=== PATIENT | female | born 1955 | race Hispanic/Latino ===

== ENCOUNTER → 2022-08-27 | Outpatient (CLI) | payer OTHER, MEDICARE ==
[~2022-08-27] MED LIST: REGADENOSON 0.4 MG/5 ML PF SYG IVP SCH
== END | disposition home or self-care (01) ==
LOC: SHCH 09:02
PROVIDERS: ATTEND Internal Medicine Cardiovascular Disease
DX: I20.9 Angina pectoris, unspecified (principal)
CPT/HCPCS: 78452; 96374; 93017; J2785; A9500 ×2

== ENCOUNTER → 2022-12-01 | Outpatient (CLI) | payer OTHER, MEDICARE | END | disposition home or self-care (01) | LOC: SHCH 15:10 | PROVIDERS: ATTEND Internal Medicine Cardiovascular Disease | DX: I87.2 Venous insufficiency (chronic) (peripheral) (principal) | CPT/HCPCS: 93970 ==

== ENCOUNTER → 2023-12-13 | Outpatient (CLI) | payer OTHER, MEDICARE | END | disposition home or self-care (01) | LOC: SHCH 09:00 | PROVIDERS: ATTEND Internal Medicine Cardiovascular Disease | DX: I87.1 Compression of vein (principal); I87.2 Venous insufficiency (chronic) (peripheral) | CPT/HCPCS: 93925; 93970 ==

== ENCOUNTER 2024-04-20 05:33 | Day surgery (SDC) | payer MEDICARE ==
[2024-04-17 11:12] VITALS: BP 225/78; PULSE 81; RESP 18
[2024-04-17 11:15] LABS: BASOPHILS # (AUTO) 0.05 K/uL (0.00-0.20); BASOPHILS % (AUTO) 0.4 % (0.0-5.0); EOSINOPHILS # (AUTO) 0.06 K/uL (0.00-0.70); EOSINOPHILS % (AUTO) 0.5 % (0.0-8.0); HEMATOCRIT 34.9 % (36-48); IMMATURE GRANULOCYTE ABSOLUTE 0.14 K/uL (0-1); LYMPHOCYTES % (AUTO) 26.3 % (21.0-51.0); MEAN CORPUSCULAR HEMOGLOBIN 30.4 pg (27.0-33.0); MEAN CORPUSCULAR HGB CONC 32.7 g/dL (32.0-36.0); MEAN CORPUSCULAR VOLUME 93.1 fL (79-99); MONOCYTES # (AUTO) 0.5 K/uL (0.1-1.0); MONOCYTES % (AUTO) 4.1 % (3.0-13.0); NEUTROPHILS # (AUTO) 7.8 K/uL (1.8-7.7); NEUTROPHILS % (AUTO) 67.5 % (40.0-77.0); PLATELET COUNT (AUTO) 205 K/uL (130-400); RED BLOOD CELL COUNT(AUTO) 3.75 MIL/uL (4.00-5.50); RED CELL DISTRIBUTION WIDTH 14.6 % (11.0-15.5); WHITE BLOOD COUNT (AUTO) 11.6 K/uL (4.8-10.8)
[2024-04-17 11:20] LABS: CREATININE 0.8 mg/dL (0.5-1.0); POTASSIUM 3.5 mmol/L (3.5-5.1)
[2024-04-17 11:37] LABS: INR 1.01 (0.85-1.15); PROTHROMBIN TIME 10.9 SEC (9.6-11.6)
[2024-04-17 11:39] LABS: PARTIAL THROMBOPLASTIN TIME 23.9 SEC (26.3-35.5)
[~2024-04-20] VITALS: Ht 147.3 cm; Wt 59.8 kg
[2024-04-20] VITALS (8 sets, daily range): BP systolic 158–215; BP diastolic 63–84; PULSE 64–84; RESP 14–17
[~2024-04-20 05:33] MED LIST changes: +AMLO-258 PO; +ATOR40TA71 PO; +AZIT500T4 PO; +CLOP75TA32 PO; +DENO60DI SQ; +GLIM2TAB30 PO; +LOSA100T59 PO; +METF-444 PO; -REGADENOSON 0.4 MG/5 ML PF SYG IVP SCH; +VIT B 12 PO
[2024-04-20] MEDS ORDERED: NITROGLYCERIN 50MG VIAL ONE (07:13)
[2024-04-20] MEDS ORDERED: LIDOCAINE HCL 400MG/20ML VIAL ONE (07:13)
[2024-04-20] MEDS ORDERED: IODIXANOL 320 MG/ML 100 ML VIAL ONE (07:14)
[2024-04-20] MEDS ORDERED: FENTANYL CITRATE PF 50 MCG/1 ML 2ML VIAL ONE (07:39)
[2024-04-20] MEDS ORDERED: MIDAZOLAM HCL 1 MG/ML 2ML VIAL ONE ×2 (07:39→08:05)
[2024-04-20] MEDS ORDERED: HEPARIN 10,000 UNIT/10ML (1,000 UNIT/ML) VIAL ONE (07:40)
[2024-04-20] MEDS ORDERED: CLOPIDOGREL 300MG TAB ONE (09:19)
[2024-04-20] MEDS ORDERED: METOPROLOL TARTRATE 1 MG/ML 5ML VIAL IV PRN (09:30)
[2024-04-20] MEDS ORDERED: GLUCAGON 1MG KIT 1 MG ML IM PRN (09:30)
[2024-04-20] MEDS ORDERED: DEXTROSE 50%-WATER 50 ML DISP.SYRIN IV PRN (09:30)
[2024-04-20] MEDS ORDERED: NITROGLYCERIN 0.4 MG SL TAB SL PRN (09:30)
[2024-04-20] MEDS ORDERED: INSULIN HUMULIN R 100 UNIT/ML 3ML SQ SCH (11:30)
== END 2024-04-20 11:39 | disposition home or self-care (01) ==
LOC: DAH 05:33
PROVIDERS: ATTEND Internal Medicine Cardiovascular Disease
DX: E11.51 Type 2 diabetes mellitus with diabetic peripheral angiopathy without gangrene (principal); I70.213 Atherosclerosis of native arteries of extremities with intermittent claudication, bilateral legs; Z79.01 Long term (current) use of anticoagulants; I10 Essential (primary) hypertension; E78.5 Hyperlipidemia, unspecified; M19.90 Unspecified osteoarthritis, unspecified site; I87.1 Compression of vein; I87.2 Venous insufficiency (chronic) (peripheral); Z95.820 Peripheral vascular angioplasty status with implants and grafts; Z88.0 Allergy status to penicillin; Z88.6 Allergy status to analgesic agent; Z79.84 Long term (current) use of oral hypoglycemic drugs; Z79.899 Other long term (current) drug therapy
CPT/HCPCS: 80048; 85025; 85610; 85730; 36415; 93005; 75625; 75716; 75774; 85347; 82948 ×2; C9765; C1887; C1725 ×2; C1769 ×2; C1894 ×2; C1760; C1893; C1876 ×2; C2623; C9772; J3010; J3490 ×2; J1644 ×2; J2250 ×2; Q9967; A4215; A4222; A4221; A4663; A4216; A4606; A4223 ×3; 99156; 99157

== ENCOUNTER → 2024-05-31 | Outpatient (CLI) | payer MEDICARE ==
[~2024-05-31] VITALS: Ht 147.3 cm; Wt 59.7 kg
[2024-05-31 13:53] LABS: BASOPHILS # (AUTO) 0.02 K/uL (0.00-0.20); BASOPHILS % (AUTO) 0.3 % (0.0-5.0); EOSINOPHILS # (AUTO) 0.11 K/uL (0.00-0.70); EOSINOPHILS % (AUTO) 1.7 % (0.0-8.0); HEMATOCRIT 34.6 % (36-48); IMMATURE GRANULOCYTE ABSOLUTE 0.03 K/uL (0-1); LYMPHOCYTES # (AUTO) 0.9 K/uL (1.0-4.8); LYMPHOCYTES % (AUTO) 14.4 % (21.0-51.0); MEAN CORPUSCULAR HEMOGLOBIN 30.6 pg (27.0-33.0); MEAN CORPUSCULAR HGB CONC 32.4 g/dL (32.0-36.0); MEAN CORPUSCULAR VOLUME 94.5 fL (79-99); MONOCYTES # (AUTO) 0.3 K/uL (0.1-1.0); MONOCYTES % (AUTO) 5.1 % (3.0-13.0); NEUTROPHILS # (AUTO) 4.9 K/uL (1.8-7.7); PLATELET COUNT (AUTO) 135 K/uL (130-400); RED BLOOD CELL COUNT(AUTO) 3.66 MIL/uL (4.00-5.50); RED CELL DISTRIBUTION WIDTH 15.1 % (11.0-15.5); WHITE BLOOD COUNT (AUTO) 6.3 K/uL (4.8-10.8)
[2024-05-31 14:00] LABS: CREATININE 0.8 mg/dL (0.5-1.0); POTASSIUM 3.6 mmol/L (3.5-5.1)
[2024-05-31 14:03] LABS: INR 1.01 (0.85-1.15); PROTHROMBIN TIME 10.9 SEC (9.6-11.6)
[2024-05-31 14:04] LABS: PARTIAL THROMBOPLASTIN TIME 27.3 SEC (26.3-35.5)
[2024-05-31 14:05] VITALS: BP 227/74; PULSE 94; RESP 18; TEMP 97.9
[2024-05-31 14:05] LABS: ADD UA MICROSCOPIC YES
[2024-05-31 14:06] LABS: APPEARANCE,URINE CLEAR (CLEAR); BACTERIA,URINE RARE /HPF (None Seen); BILIRUBIN,URINE NEGATIVE (NEGATIVE); COLOR,URINE LIGHT-YELLOW (YELLOW); GLUCOSE, URINE (UA) >=1000 mg/dL (NEGATIVE); KETONES,URINE NEGATIVE (NEGATIVE); LEUKOCYTE ESTERASE ,URINE NEGATIVE Leu/uL (NEGATIVE); MUCUS,URINE RARE LPF (None Seen); NITRATE,URINE NEGATIVE (NEGATIVE); PROTEIN,URINE 30 mg/dL (NEGATIVE); RBC,URINE 0-1 /HPF (0-1); SQUAMOUS EPITHELIAL CELL,UR FEW /HPF (0-2); UROBILINOGEN,URINE 0.2 mg/dL (0.2-1.0); WBC,URINE 0-1 /HPF (0-1)
[2024-05-31 14:33] LABS: B-TYPE NATRIURETIC PEPTIDE 16 pg/mL (0-100)
== END | disposition home or self-care (01) ==
LOC: DAH 10:00 → EDSTATUS 13:00
PROVIDERS: ATTEND Internal Medicine Cardiovascular Disease
DX: Z01.818 Encounter for other preprocedural examination (principal); I73.9 Peripheral vascular disease, unspecified
CPT/HCPCS: 36415; 71045; 80048; 81001; 83880; 85025; 85610; 85730; 87426; 93005

== ENCOUNTER → 2024-06-01 | Outpatient (CLI) | payer MEDICARE | END | disposition home or self-care (01) | LOC: DAH 10:00 | PROVIDERS: ATTEND Internal Medicine Cardiovascular Disease | DX: Z20.822 Contact with and (suspected) exposure to COVID-19 (principal) | CPT/HCPCS: 87426 ==

== ENCOUNTER 2024-07-10 08:24 | Day surgery (SDC) | payer MEDICARE ==
[2024-07-06 13:41] LABS: BASOPHILS # (AUTO) 0.02 K/uL (0.00-0.20); BASOPHILS % (AUTO) 0.4 % (0.0-5.0); EOSINOPHILS # (AUTO) 0.11 K/uL (0.00-0.70); EOSINOPHILS % (AUTO) 2.5 % (0.0-8.0); HEMATOCRIT 31.1 % (36-48); IMMATURE GRANULOCYTE ABSOLUTE 0.02 K/uL (0-1); LYMPHOCYTES # (AUTO) 1.2 K/uL (1.0-4.8); LYMPHOCYTES % (AUTO) 27.6 % (21.0-51.0); MEAN CORPUSCULAR HGB CONC 33.4 g/dL (32.0-36.0); MEAN CORPUSCULAR VOLUME 92.6 fL (79-99); MONOCYTES # (AUTO) 0.2 K/uL (0.1-1.0); MONOCYTES % (AUTO) 4.5 % (3.0-13.0); NEUTROPHILS # (AUTO) 2.9 K/uL (1.8-7.7); NEUTROPHILS % (AUTO) 64.6 % (40.0-77.0); PLATELET COUNT (AUTO) 150 K/uL (130-400); RED BLOOD CELL COUNT(AUTO) 3.36 MIL/uL (4.00-5.50); RED CELL DISTRIBUTION WIDTH 14.7 % (11.0-15.5); WHITE BLOOD COUNT (AUTO) 4.5 K/uL (4.8-10.8)
[2024-07-06 13:46] VITALS: PULSE 86; RESP 18; TEMP 97.7
[2024-07-06 13:54] LABS: CREATININE 0.8 mg/dL (0.5-1.0); INR 1.01 (0.85-1.15); POTASSIUM 3.7 mmol/L (3.5-5.1); PROTHROMBIN TIME 10.9 SEC (9.6-11.6)
[2024-07-06 13:56] LABS: PARTIAL THROMBOPLASTIN TIME 25.9 SEC (26.3-35.5)
[2024-07-06 13:58] LABS: ADD UA MICROSCOPIC YES; APPEARANCE,URINE CLEAR (CLEAR); BACTERIA,URINE RARE /HPF (None Seen); BILIRUBIN,URINE NEGATIVE (NEGATIVE); COLOR,URINE LIGHT-YELLOW (YELLOW); GLUCOSE, URINE (UA) >=1000 mg/dL (NEGATIVE); KETONES,URINE NEGATIVE (NEGATIVE); LEUKOCYTE ESTERASE ,URINE NEGATIVE Leu/uL (NEGATIVE); MUCUS,URINE RARE LPF (None Seen); NITRATE,URINE NEGATIVE (NEGATIVE); OCCULT BLOOD,URINE NEGATIVE (NEGATIVE); PROTEIN,URINE 20 mg/dL (NEGATIVE); SQUAMOUS EPITHELIAL CELL,UR FEW /HPF (0-2); UROBILINOGEN,URINE 0.2 mg/dL (0.2-1.0)
[2024-07-06 14:11] LABS: B-TYPE NATRIURETIC PEPTIDE 14 pg/mL (0-100)
[~2024-07-10] VITALS: Ht 147.3 cm; Wt 59.8 kg
[2024-07-10] VITALS (15 sets, daily range): BP systolic 131–195; BP diastolic 51–66; PULSE 73–88; RESP 14–16; TEMP 98.1–98.2
[~2024-07-10 08:24] MED LIST changes: -AZIT500T4 PO
[2024-07-10] MEDS ORDERED: 0.9%NACL 1000ML 1,000 ML IV ONE (09:52)
[2024-07-10] MEDS: 0.9%NACL 1000ML 1,000 ML IV ONE (09:53)
[2024-07-10] MEDS ORDERED: LIDOCAINE HCL 400MG/20ML VIAL ONE (10:20)
[2024-07-10] MEDS ORDERED: HEParin-NS 1,000 UNIT/500 ML 1,000 ML IV ONE (10:21)
[2024-07-10] MEDS ORDERED: NITROGLYCERIN 50MG VIAL ONE (10:21)
[2024-07-10] MEDS ORDERED: IODIXANOL 320 MG/ML 100 ML VIAL ONE (10:21)
[2024-07-10] MEDS ORDERED: FENTanyl CITRate PF 50 MCG/1 ML 2ML VIAL ONE (10:34)
[2024-07-10] MEDS ORDERED: MIDAZOLAM HCL 1 MG/ML 2ML VIAL ONE ×2 (10:35→11:31)
[2024-07-10] MEDS ORDERED: HEParin 10,000 UNIT/10ML (1,000 UNIT/ML) VIAL ONE (10:38)
[2024-07-10] MEDS ORDERED: cloPIDOgrel 300MG TAB ONE (11:39)
[2024-07-10] MEDS: 0.9%NACL 1000ML 1,000 ML IV SCH (12:00)
[2024-07-10] MEDS ORDERED: DEXTROSE 50%-WATER 50 ML DISP.SYRIN IV PRN (12:00)
[2024-07-10] MEDS ORDERED: 0.9%NACL 10ML VIAL IVP SCH (12:00)
[2024-07-10] MEDS ORDERED: GLUCAGON 1MG KIT 1 MG ML IM PRN (12:00)
[2024-07-10] MEDS: ATROPINE 1MG SYG IVP ONE (14:00)
[2024-07-10] MEDS ORDERED: INSULIN humuLIN R 100 UNIT/ML 3ML SQ SCH (16:30)
== END 2024-07-10 17:15 | disposition home or self-care (01) ==
LOC: DAH 08:24
PROVIDERS: ATTEND Internal Medicine Cardiovascular Disease
DX: E11.51 Type 2 diabetes mellitus with diabetic peripheral angiopathy without gangrene (principal); I70.201 Unspecified atherosclerosis of native arteries of extremities, right leg; I87.1 Compression of vein; I87.2 Venous insufficiency (chronic) (peripheral); I10 Essential (primary) hypertension; E78.5 Hyperlipidemia, unspecified; M19.90 Unspecified osteoarthritis, unspecified site; Z88.0 Allergy status to penicillin; Z88.6 Allergy status to analgesic agent; Z95.820 Peripheral vascular angioplasty status with implants and grafts; Z79.01 Long term (current) use of anticoagulants; Z79.899 Other long term (current) drug therapy
CPT/HCPCS: 80048; 83880; 85025; 85610; 85730; 81001; 36415 ×2; 71045; 93005; 37224; 75625; 75710; 85347; 82948 ×2; C1887; C1769; C1894 ×2; C1893; C2623; J3010; J3490 ×2; J7030 ×2; J1644 ×2; J2250 ×2; Q9967; A4215; A6402; A4222; A4221; A4663; A4216; A6258; A4606; A4223 ×3; 96360; 96361; 99156; 99157; J0461

== ENCOUNTER 2025-01-21 05:43 | Day surgery (SDC) | payer MEDICARE ==
[2025-01-17 09:20] VITALS: BP 168/72; PULSE 82; RESP 18; TEMP 98.1
[2025-01-17 09:36] LABS: CREATININE 0.9 mg/dL (0.5-1.0); POTASSIUM 3.7 mmol/L (3.5-5.1)
[2025-01-17 09:39] LABS: BASOPHILS # (AUTO) 0.02 K/uL (0.00-0.20); BASOPHILS % (AUTO) 0.3 % (0.0-5.0); EOSINOPHILS # (AUTO) 0.12 K/uL (0.00-0.70); EOSINOPHILS % (AUTO) 1.9 % (0.0-8.0); HEMATOCRIT 33.9 % (36-48); IMMATURE GRANULOCYTE ABSOLUTE 0.04 K/uL (0-1); LYMPHOCYTES # (AUTO) 1.4 K/uL (1.0-4.8); LYMPHOCYTES % (AUTO) 23.1 % (21.0-51.0); MEAN CORPUSCULAR HEMOGLOBIN 31.1 pg (27.0-33.0); MEAN CORPUSCULAR HGB CONC 33.6 g/dL (32.0-36.0); MEAN CORPUSCULAR VOLUME 92.6 fL (79-99); MONOCYTES # (AUTO) 0.3 K/uL (0.1-1.0); MONOCYTES % (AUTO) 4.4 % (3.0-13.0); NEUTROPHILS # (AUTO) 4.3 K/uL (1.8-7.7); NEUTROPHILS % (AUTO) 69.7 % (40.0-77.0); PLATELET COUNT (AUTO) 171 K/uL (130-400); RED BLOOD CELL COUNT(AUTO) 3.66 MIL/uL (4.00-5.50); WHITE BLOOD COUNT (AUTO) 6.2 K/uL (4.8-10.8)
[2025-01-17 09:48] LABS: INR 1.08 (0.85-1.15); PROTHROMBIN TIME 11.4 SEC (9.6-11.6)
[2025-01-17 09:50] LABS: PARTIAL THROMBOPLASTIN TIME 31.7 SEC (26.3-35.5)
--- NOTE | 2025-01-17 12:57 | EKG ---
[facility] Test Date: 2025-01-17 Test Time: 09:15:27 Pat Name: SHERRIE SAINI Department: [facility] Room: Gender: F [employer] Supervisor: [id number] : 1955 Requested By: LILIAN BERMUDEZ Order Number: [id number] Reading MD: Henrry Fair Measurements Intervals [place] Rate: 84 P: 52 NH: 152 QRS: 35 QRSD: 72 T: 75 QT: 381 QTc: 450 Interpretive Statements Sinus rhythm Nonspecific T abnormalities, lateral leads Compared to ECG 07/06/2024 13:29:17 T-wave abnormality now present Electronically Signed On 01-17-2025 14:57:45 CDT by Henrry Fair Please click the below link to view image of tracing.
[2025-01-21] VITALS (14 sets, daily range): BP systolic 133–188; BP diastolic 43–94; PULSE 66–82; RESP 11–20; TEMP 97.5–98.1
[~2025-01-21] VITALS: Ht 147.3 cm; Wt 57.1 kg
[~2025-01-21 05:43] MED LIST changes: +DAPA10TA PO; +PANT40TA54 PO; +RIVA2.5T PO
[2025-01-21] MEDS: 0.9%NACL 1000ML 1,000 ML IV SCH (06:29)
[2025-01-21] MEDS ORDERED: HEParin 10,000 UNIT/10ML (1,000 UNIT/ML) VIAL ONE (07:05)
[2025-01-21] MEDS ORDERED: IODIXANOL 320 MG/ML 100 ML VIAL ONE (07:05)
[2025-01-21] MEDS ORDERED: LIDOCAINE HCL 400MG/20ML VIAL ONE (07:05)
[2025-01-21] MEDS ORDERED: HEParin-NS 1,000 UNIT/500 ML 1,000 ML IV ONE (07:06)
[2025-01-21] MEDS ORDERED: NITROGLYCERIN 50MG VIAL ONE (07:06)
[2025-01-21] MEDS ORDERED: FENTanyl CITRate PF 50 MCG/1 ML 2ML VIAL ONE (07:30)
[2025-01-21] MEDS ORDERED: MIDAZOLAM HCL 1 MG/ML 2ML VIAL ONE ×2 (07:30→07:55)
[2025-01-21] MEDS ORDERED: cloPIDOgrel 300MG TAB ONE (08:16)
[2025-01-21] MEDS ORDERED: 0.9%NACL 1000ML 1,000 ML IV SCH (08:30)
[2025-01-21] MEDS ORDERED: GLUCAGON 1MG KIT 1 MG ML IM PRN (08:30)
[2025-01-21] MEDS ORDERED: metoPROLOL tartRATE 1 MG/ML 5ML VIAL IV PRN (08:30)
[2025-01-21] MEDS ORDERED: DEXTROSE 50%-WATER 50 ML DISP.SYRIN IV PRN (08:30)
[2025-01-21] MEDS ORDERED: NITROGLYCERIN 0.4 MG SL TAB SL PRN (08:30)
--- NOTE | 2025-01-21 08:53 | PRN ---
Procedure Note INDICATION FOR PROCEDURE: [] Symptom limiting claudication Diabetic angiopathy Evidence of severe in stent restenosis of left after he was fairly left popliteal artery [place] class four PROCEDURE: [] Conscious sedation Right common femoral arterial sheath placement six Tristanian 45 cm sheath placement from right common femoral artery up and over and stationed in proximal left SFA with contrast injection and pressure measurement Drug coated balloon angioplasty to distal left SFA and entirety of left popliteal artery with the use of a 5 mm by 200 mm medicated balloon Abdominal aortogram with bilateral lower extremity runoffs DATE OF PROCEDURE: January 21, 2025 COLUMNIST: Leland Martin MD, F.A.C.C. PROCEDURE NOTE: [] Patient was brought to the catheterizations we then prepped and draped in sterile fashion. An IV was started if moderate in place in both groins were exposed for arterial access. 2% lidocaine was used for local anesthesia and then a micropuncture kit was used to clean access and once free foreign body was seen modified Seldinger technique was utilized to place a six Tristanian sheath into the right common femoral artery. Next an Omni flush catheter was then placed into the abdominal aorta pressure measurements were obtained and then a abdominal aortogram was performed. Next the Omni flush catheter was then used to direct the Glidewire into the left iliac system and this was then placed into the left anterior tibial artery under fluoroscopic guidance. Next omni flush catheter was removed short six Tristanian sheath was removed and replaced with a 45 cm sheath which was placed up and over and parked into the proximal portion of the left SFA. Pressure measurements were obtained and then a contrast injection was performed running off the entirety of the left lower extremity. Findings are as described below. After diagnostic angiography was performed it was felt intervention should be done to left SFA and left popliteal artery on previously placed stents which has been placed in the left popliteal artery and left SFA. Therefore a 5 mm x [address] [employer] IN PA CT abnormal paclitaxel coated balloon was then placed into this region and deployed to nine atmospheres for 3 minutes making it a 5.29 mm vessel. Follow up contrast injection well no evidence of dissection or perforation with normal flow noted to fill the left anterior tibial artery. Next the long sheath was replaced with a short sheath and then I runoff was done of the right lower extremity to the foot. At end of case Perclose device was performed for closure of arteriotomy site in the right and no complications occurred. FINDINGS: [] The abdominal aorta is free of any significant aneurysmal changes or calcium. Renal arteries are patent bilaterally Bilateral common iliac external iliac and internal iliac arteries were noted to be patent. Bilateral common femoral arteries and profunda femoris arteries were noted to be patent. The right superficial femoral artery and its proximal segment has an 85% calcified stenosis. The left superficial femoral artery has multiple zones events stent restenosis involving at 90-95% as well as in the left popliteal artery of 90-95%. 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
--- NOTE | 2025-01-21 10:51 | NUR ---
DRESSING: NOTED SOME BLEEDING DRAINING TO SIDE OF GROIN AREA. D-STAT SATURATED AND REMOVED. CLEANSED AREA AND APPLIED NEW D-STAT. HELD PRESSURE FOR ABOUT [address] BERMUDEZ HERE AND ASSESSED PT. AREA SOFT TO TOUCH. NO ORDERS GIVEN PER DR. BERMUDEZ.
[2025-01-21] MEDS ORDERED: INSULIN humuLIN R 100 UNIT/ML 3ML SQ SCH (11:30)
--- NOTE | 2025-01-21 12:35 | NUR ---
urinary/activity: assisted to standing position without complaining of dizziness. ambulated to bathroom at slow steady gait. pt voided qs clear yellow color urine in toilet. assisted back to bed at 70 degree angle.
== END 2025-01-21 14:25 | disposition home or self-care (01) ==
LOC: DAH 05:43
PROVIDERS: ATTEND Internal Medicine Cardiovascular Disease
DX: E11.51 Type 2 diabetes mellitus with diabetic peripheral angiopathy without gangrene (principal); I70.213 Atherosclerosis of native arteries of extremities with intermittent claudication, bilateral legs; T82.856A Stenosis of peripheral vascular stent, initial encounter; I10 Essential (primary) hypertension; E78.5 Hyperlipidemia, unspecified; I87.2 Venous insufficiency (chronic) (peripheral); I87.1 Compression of vein; M19.90 Unspecified osteoarthritis, unspecified site; Z98.890 Other specified postprocedural states; Z83.3 Family history of diabetes mellitus; Z82.49 Family history of ischemic heart disease and other diseases of the circulatory system; Z80.8 Family history of malignant neoplasm of other organs or systems; Z88.8 Allergy status to other drugs, medicaments and biological substances; Z88.0 Allergy status to penicillin; Z95.820 Peripheral vascular angioplasty status with implants and grafts; Z79.899 Other long term (current) drug therapy; Z79.01 Long term (current) use of anticoagulants; Z79.84 Long term (current) use of oral hypoglycemic drugs; Y82.8 Other medical devices associated with adverse incidents
CPT/HCPCS: 80048; 85025; 85610; 85730; 36415; 93005; 37224; 75716; 75625; 85347; 82948 ×2; C1769; C1894 ×2; C1760; C1893; C2623; J3010; J3490 ×2; J1644 ×2; J2250 ×2; Q9967; A4215; A6402; A4335; A4222; A4221; A4663; A4216; A4606; A4223 ×3; A4554; 96360; 96361; 99156; 99157

== ENCOUNTER → 2025-09-04 | Outpatient (CLI) | payer MEDICARE ==
--- NOTE | 2025-09-05 01:36 | HMCIMG ---
EXAM: Carotid Duplex Ultrasound CLINICAL HISTORY: Carotid bruit. TECHNIQUE: Grayscale, color Doppler, and spectral Doppler evaluation of the bilateral common carotid, internal carotid, and external carotid arteries with vertebral artery assessment. COMPARISON: None. FINDINGS: RIGHT CAROTID ARTERIES: Mild atherosclerotic plaque at the carotid bifurcation, described as calcified. Peak systolic velocities measure CCA 83 cm/s, ICA 110 cm/s, and ECA 160 cm/s. ICA/CCA peak systolic velocity ratio is 1.3. By Doppler velocity criteria, there is no hemodynamically significant stenosis of the right internal carotid artery (estimated <50% stenosis). LEFT CAROTID ARTERIES: Peak systolic velocities measure CCA 70 cm/s, ICA 117 cm/s, and ECA 207 cm/s. ICA/CCA peak systolic velocity ratio is 1.7. By Doppler velocity criteria, there is no hemodynamically significant stenosis of the left internal carotid artery (estimated <50% stenosis). Elevated external carotid artery velocity may reflect hemodynamically significant ECA stenosis. VERTEBRAL ARTERIES: Antegrade flow is present bilaterally. Peak systolic velocities measure 55 cm/s on the right and 59 cm/s on the left. IMPRESSION: 1. No hemodynamically significant stenosis of either internal carotid artery by ultrasound Doppler criteria (bilateral ICA stenosis <50%). Calcified atherosclerotic plaque is noted at the right carotid bifurcation. 2. Bilateral vertebral arteries are patent with antegrade flow. 3. Elevated left external carotid artery velocity, which can be seen with hemodynamically significant ECA stenosis. RECOMMENDATION: In the absence of neurologic symptoms, findings are typically managed with guideline-directed medical therapy and risk factor modification; routine follow-up imaging is not required for mild (<50%) ICA disease, though repeat carotid duplex in 12 years may be considered if clinically warranted per ACR-appropriate surveillance practices. If there are referable neurologic symptoms or if clinical concern persists despite these findings, CTA or MRA of the head/neck is appropriate for further evaluation. /[place]
== END | disposition home or self-care (01) ==
LOC: RAH 10:08
PROVIDERS: ATTEND Internal Medicine
DX: I65.21 Occlusion and stenosis of right carotid artery (principal); I67.82 Cerebral ischemia; R09.89 Other specified symptoms and signs involving the circulatory and respiratory systems; R51.9 Headache, unspecified
CPT/HCPCS: 93880

== ENCOUNTER → 2025-09-18 | Outpatient (CLI) | payer MEDICARE ==
[~2025-09-18] MED LIST changes: +IOHEXOL-350 75 ML VIAL IV ONE
--- NOTE | 2025-09-19 09:43 | HMCIMG ---
EXAM: CTA Head without and with Intravenous Contrast. CLINICAL HISTORY: Occlusion stenosis of unspecified carotid artery. TECHNIQUE: Axial CTA images of the head performed. Coronal and sagittal reformatted images were generated and reviewed. CT scan done according to ALARA (As Low as Reasonably Achievable). CONTRAST: Yes. COMPARISON: None provided. FINDINGS: Anterior cerebral arteries are unremarkable. Anterior communicating artery is opacified. Middle Cerebral arteries are unremarkable. Posterior cerebral arteries are intact. origin of the bilateral posterior cerebral arteries. Vertebral arteries are visualized. Basilar artery is unremarkable. Atheromatous calcifications in the bilateral cavernous, clinoid, and supraclinoid internal carotid arteries causing 50-60% luminal narrowing. No evidence of aneurysm (greater than 4 mm) or arteriovenous lesion. IMPRESSION: Atheromatous calcifications in the bilateral cavernous, clinoid, and supraclinoid internal carotid arteries causing 50-60% luminal narrowing. Otherwise, unremarkable CT angiogram of the head. EXAM: CTA Neck without and with Intravenous Contrast. CLINICAL HISTORY: Occlusion stenosis of unspecified carotid artery. TECHNIQUE: Axial CTA images of the neck performed. Coronal and sagittal reformatted images were generated and reviewed. CT scan done according to ALARA (As Low as Reasonably Achievable). CONTRAST: Yes. COMPARISON: Carotid Doppler dated 09/04/25. FINDINGS: Mild atheromatous calcifications in the bilateral carotid bulbs, left proximal internal carotid artery, right proximal subclavian artery, and aortic arch. Approximately 20-30% luminal narrowing near the origin of left internal carotid artery. Bilateral CCA, Carotid Bulb, right ICA, and origin of the bilateral ECA are well opacified. Vertebral arteries are well opacified. Jugular veins are well opacified Included great vessels of the aortic arch are grossly unremarkable. Included lung apices reveal mosaic attenuation. No acute bony changes. Mild multilevel cervical spondylosis. IMPRESSION: Mild atheromatous calcifications in the bilateral carotid bulbs, left proximal internal carotid artery, right proximal subclavian artery, and aortic arch. Approximately 20-30% luminal narrowing near the origin of left internal carotid artery. Otherwise, unremarkable CT angiogram of the neck. /[place]
== END | disposition home or self-care (01) ==
LOC: RAH 07:43
PROVIDERS: ATTEND Internal Medicine
DX: I65.23 Occlusion and stenosis of bilateral carotid arteries (principal); I70.0 Atherosclerosis of aorta; I70.8 Atherosclerosis of other arteries; R09.89 Other specified symptoms and signs involving the circulatory and respiratory systems; R51.9 Headache, unspecified; M47.812 Spondylosis without myelopathy or radiculopathy, cervical region
CPT/HCPCS: 70496; 70498; Q9967